=== PATIENT | female | born 1945 | race Caucasian/White ===

== ENCOUNTER 2019-12-31 23:39 | Inpatient (IN) | payer MEDICARE, BC ==
[~2019-12-31] VITALS: Ht 152.4 cm; Wt 44.5 kg
[2020-01-01] VITALS (7 sets, daily range): BP systolic 135–172; BP diastolic 72–100
[2020-01-01] MEDS ORDERED: IV NORMAL SALINE 500 ML BAG IV ONE
[2020-01-01] MEDS ORDERED: PANTOPRAZOLE SODIUM 40 MG VIAL ONE (00:11)
[2020-01-01] MEDS ORDERED: MECLIZINE HCL 25 MG TABLET ONE (00:11)
[2020-01-01] MEDS ORDERED: PANTOPRAZOLE SODIUM IV 80 MG in IV DEXTROSE 5% 100 ML IV ONE (00:15)
[2020-01-01] MEDS ORDERED: MECLIZINE HCL 25 MG TABLET PO ONE (00:15)
[2020-01-01 00:16] LABS: BASOPHILS # (AUTO) 0.1 K/uL (0.0-8.0); EOSINOPHILS # (AUTO) 0.3 K/uL (0.0-0.7); EOSINOPHILS % (AUTO) 2.2 % (0.0-7.0); HEMATOCRIT 34.1 % (31.2-41.9); HEMOGLOBIN 11.3 g/dL (10.9-14.3); LYMPHOCYTES # (AUTO) 2.3 K/uL (20.0-40.0); LYMPHOCYTES % (AUTO) 17.6 % (20.5-51.5); MEAN CORPUSCULAR HEMOGLOBIN 30.5 uug (24.7-32.8); MEAN CORPUSCULAR HGB CONC 33 g/dL (32.3-35.6); MEAN CORPUSCULAR VOLUME 92.2 fL (75.5-95.3); MONOCYTES # (AUTO) 1.1 K/uL (2.0-10.0); MONOCYTES % (AUTO) 8.6 % (0.0-11.0); NEUTROPHILS # (AUTO) 9.3 K/uL (1.8-8.9); NEUTROPHILS % (AUTO) 70.6 % (38.5-71.5); PLATELET COUNT (AUTO) 238 K/uL (179-408); WHITE BLOOD COUNT (AUTO) 13.2 K/uL (3.8-11.8)
[2020-01-01 00:21] LABS: CARBON DIOXIDE 25 mmol/L (21-32); CHLORIDE 103 mmol/L (98-107); CREATININE 1.4 mg/dL (0.6-1.3); GLUCOSE 153 mg/dL (74-106); POTASSIUM 3.2 mmol/L (3.5-5.1); UREA NITROGEN, BLOOD 63 mg/dL (7-18)
[2020-01-01 00:34] LABS: ALANINE AMINOTRANSFERASE 30 U/L (14-59); ALKALINE PHOSPHATASE 120 U/L (50-136); ASPARTATE AMINOTRANSFERASE 49 U/L (15-37); BILIRUBIN,DIRECT 0.1 mg/dL (0.0-0.2); BILIRUBIN,TOTAL 0.3 mg/dL (0.2-1.0); TOTAL PROTEIN, SERUM 6.8 g/dL (6.4-8.2)
[2020-01-01] MEDS ORDERED: METOCLOPRAMIDE HCL 10 MG/2 ML VIAL IV ONE (01:00)
[2020-01-01] MEDS ORDERED: MORPHINE SULFATE 2 MG/1 ML DISP.SYRIN IV PRN (01:15)
[2020-01-01] MEDS ORDERED: HYDROCODONE/APAP 5-325MG TABLET PO PRN (01:15)
[2020-01-01] MEDS ORDERED: MAGNESIUM HYDROXIDE 30 ML LIQUID UDC PO PRN (01:15)
[2020-01-01] MEDS ORDERED: ONDANSETRON 4 MG/2 ML VIAL IV PRN (01:15)
[2020-01-01] MEDS ORDERED: Z GUARD REMEDY PASTE 57 GM TUBE TOP PRN (01:15)
[2020-01-01] MEDS ORDERED: METOPROLOL TARTRATE 25 MG TABLET PO ONE (03:30)
[2020-01-01] MEDS: IV NS 1000 ML 1,000 ML IV PRN ×2 (04:29→17:42)
[2020-01-01] MEDS: PANTOPRAZOLE SODIUM 40 MG VIAL IV SCH ×2 (08:40→20:14)
[2020-01-01] MEDS ORDERED: PANTOPRAZOLE SODIUM IV 40 MG in IV DEXTROSE 5% 100 ML IV SCH (09:00)
[2020-01-01 11:30] LABS: EOSINOPHILS # (AUTO) 0.1 K/uL (0.0-0.7)
[2020-01-01 11:42] LABS: BASOPHILS # (AUTO) 0.2 K/uL (0.0-8.0); BASOPHILS % (AUTO) 1.1 % (0.0-2.0); EOSINOPHILS % (AUTO) 0.8 % (0.0-7.0); HEMATOCRIT 28.4 % (31.2-41.9); HEMOGLOBIN 9.3 g/dL (10.9-14.3); LYMPHOCYTES # (AUTO) 1.7 K/uL (20.0-40.0); LYMPHOCYTES % (AUTO) 11.1 % (20.5-51.5); MEAN CORPUSCULAR HEMOGLOBIN 30.5 uug (24.7-32.8); MEAN CORPUSCULAR HGB CONC 33 g/dL (32.3-35.6); MEAN CORPUSCULAR VOLUME 93.3 fL (75.5-95.3); MONOCYTES # (AUTO) 1.2 K/uL (2.0-10.0); MONOCYTES % (AUTO) 8.4 % (0.0-11.0); NEUTROPHILS # (AUTO) 11.7 K/uL (1.8-8.9); NEUTROPHILS % (AUTO) 78.6 % (38.5-71.5); PLATELET COUNT (AUTO) 216 K/uL (179-408); RED BLOOD CELL COUNT(AUTO) 3.04 MIL/uL (3.63-4.92); WHITE BLOOD COUNT (AUTO) 14.9 K/uL (3.8-11.8)
[2020-01-01 11:54] LABS: THYROID STIMULATING HORMONE 2.349 mIU/mL (0.358-3.740)
[2020-01-01 12:02] LABS: CREATININE 1.3 mg/dL (0.6-1.3); POTASSIUM 3.7 mmol/L (3.5-5.1)
[2020-01-01 12:08] LABS: BILIRUBIN,TOTAL 0.4 mg/dL (0.2-1.0); MAGNESIUM 1.8 mg/dL (1.8-2.4); PHOSPHOROUS 4.1 mg/dL (2.5-4.9); TOTAL PROTEIN, SERUM 6.1 g/dL (6.4-8.2)
[2020-01-01] MEDS ORDERED: POTASSIUM CHLORIDE 20 MEQ TAB.PRT.SR PO ONE (15:45)
[2020-01-01] MEDS: METOPROLOL SUCCINATE XL 25 MG TAB.SR.24H PO SCH (16:09)
[2020-01-01] MEDS: ACETAMINOPHEN 325 MG TABLET PO PRN (17:43)
[2020-01-01 20:03] LABS: *BILIRUBIN,URIN NEGATIVE (NEGATIVE); *BLOOD, URINE NEGATIVE (NEGATIVE); *CLARITY,URINE CLEAR (CLEAR); *COLOR,URINE YELLOW (YELLOW); *KETONES,URINE NEGATIVE (NEGATIVE); *UROBILINOGEN,URINE 0.2 E.U./dl (NORMAL); LEUKOCYTE ESTERASE ,URINE NEGATIVE (NEGATIVE); NITRITE, URINE NEGATIVE (NEGATIVE); PH,URINE 6.5 (5.0-8.0); UGLUCOSE NEGATIVE (NEGATIVE)
[2020-01-02] VITALS: BP 134/84
[2020-01-02 04:00] VITALS: BP 125/74
[2020-01-02] MEDS: IV NS 1000 ML 1,000 ML IV PRN (06:28)
[2020-01-02] MEDS: ACETAMINOPHEN 325 MG TABLET PO PRN (06:44)
[2020-01-02] MEDS ORDERED: LEVOTHYROXINE SODIUM 50 MCG TABLET PO SCH (07:00)
[2020-01-02 07:11] LABS: BASOPHILS # (AUTO) 0.1 K/uL (0.0-8.0); BASOPHILS % (AUTO) 1.1 % (0.0-2.0); EOSINOPHILS # (AUTO) 0.5 K/uL (0.0-0.7); EOSINOPHILS % (AUTO) 4.3 % (0.0-7.0); HEMATOCRIT 24.9 % (31.2-41.9); HEMOGLOBIN 8.3 g/dL (10.9-14.3); LYMPHOCYTES # (AUTO) 1.6 K/uL (20.0-40.0); MEAN CORPUSCULAR HEMOGLOBIN 31.1 uug (24.7-32.8); MEAN CORPUSCULAR HGB CONC 33 g/dL (32.3-35.6); MEAN CORPUSCULAR VOLUME 93.1 fL (75.5-95.3); MONOCYTES # (AUTO) 1.1 K/uL (2.0-10.0); MONOCYTES % (AUTO) 10.2 % (0.0-11.0); NEUTROPHILS # (AUTO) 7.5 K/uL (1.8-8.9); NEUTROPHILS % (AUTO) 69.4 % (38.5-71.5); PLATELET COUNT (AUTO) 194 K/uL (179-408); RED BLOOD CELL COUNT(AUTO) 2.68 MIL/uL (3.63-4.92); WHITE BLOOD COUNT (AUTO) 10.8 K/uL (3.8-11.8)
[2020-01-02 07:21] LABS: CREATININE 1.2 mg/dL (0.6-1.3); MAGNESIUM 1.7 mg/dL (1.8-2.4)
[2020-01-02] MEDS: PANTOPRAZOLE SODIUM 40 MG VIAL IV SCH (08:13)
[2020-01-02] MEDS: METOPROLOL SUCCINATE XL 25 MG TAB.SR.24H PO SCH (08:14)
[2020-01-02] MEDS ORDERED: FERROUS SULFATE 325 MG TABEC PO SCH (09:00)
[2020-01-02 11:36] VITALS: BP 144/73
[2020-01-02] MEDS ORDERED: MAGNESIUM OXIDE 400 MG TABLET PO ONE ×2 (12:00→16:00)
[2020-01-02 15:54] VITALS: BP 142/84
== END 2020-01-02 17:00 | disposition home or self-care (01) | DRG 391 ==
LOC: ER 23:46 → TELE3 01-01 01:35
PROVIDERS: ADMIT Internal Medicine; ATTEND Internal Medicine
DX: A08.4 Viral intestinal infection, unspecified (principal); N17.0 Acute kidney failure with tubular necrosis; E44.0 Moderate protein-calorie malnutrition; D68.59 Other primary thrombophilia; D50.9 Iron deficiency anemia, unspecified; E86.9 Volume depletion, unspecified; E78.5 Hyperlipidemia, unspecified; E03.9 Hypothyroidism, unspecified; H55.00 Unspecified nystagmus; I95.1 Orthostatic hypotension; I10 Essential (primary) hypertension; R79.89 Other specified abnormal findings of blood chemistry; M19.012 Primary osteoarthritis, left shoulder; M19.011 Primary osteoarthritis, right shoulder; Z96.649 Presence of unspecified artificial hip joint; Z90.81 Acquired absence of spleen; Z74.09 Other reduced mobility; Z85.05 Personal history of malignant neoplasm of liver; Z85.07 Personal history of malignant neoplasm of pancreas
CPT/HCPCS: 36415; 70030-TC; 70450; 71045; 82378; 83550; 83690; 83735; 84100; 84443; 85025; 85610; 86301; 86850; 86900; 86901; 87086; 93005; A4663; C9113; G0378; J7030; J7040; J7060; J8597